=== PATIENT | male | born 1975 | race Caucasian/White ===

== ENCOUNTER 2022-11-01 09:57 | Observation (INO) ==
[~2022-11-01 09:57] MED LIST: Buffered Lidocaine 1% SYRIN 1 ml INTRADERM ONE; HYDROcodone/ACETAMIN 5/325 mg TAB PO PRN; Lactated Ringers 1000 ml BAG 1,000 ML IV SCH; Metoclopramide 5 MG/ML VIAL (10 mg) IV PRN; Naloxone 0.4 mg VIAL 0.4 mg/ml 1 ml VIAL IV PRN; Ondansetron 4 mg VIAL 2 MG/ML 2 ml VIAL IV PRN; fentaNYL 100 mcg/2 ml 50 MCG/ML VIAL IV PRN
[2022-11-01] MEDS ORDERED: Buffered Lidocaine 1% SYRIN 1 ml ONE (10:39)
[2022-11-01] MEDS ORDERED: ceFAZolin 2 GM in NS PREMIX 2 GM/100 ML BAG IVPB ONE (10:39)
[2022-11-01] MEDS ORDERED: Propofol 10 MG/ML 20 ML BTL ONE (13:33)
[2022-11-01] MEDS ORDERED: Rocuronium 50 mg VIAL 10 mg/ml 5 ml VIAL (50 mg) ONE ×2 (13:33→14:42)
[2022-11-01] MEDS ORDERED: Lidocaine 2% PF 5 ML VIAL ONE (13:33)
[2022-11-01] MEDS ORDERED: Ondansetron 4 mg VIAL 2 MG/ML 2 ml VIAL ONE (13:33)
[2022-11-01] MEDS ORDERED: Midazolam 2 mg/2 ml VIAL 1 mg/ml 2 ml VIAL (2 mg) ONE (13:33)
[2022-11-01] MEDS ORDERED: Dexamethasone IV 4 MG/ML VIAL 1 ml VIAL ONE (13:33)
[2022-11-01] MEDS ORDERED: fentaNYL 100 mcg/2 ml 50 MCG/ML VIAL ONE ×3 (13:33→17:04)
[2022-11-01] MEDS ORDERED: ROPIVACAINE 5 MG/ML 30 ML BTL (0.5%) ONE (13:33)
[2022-11-01] MEDS ORDERED: Lactulose 30 ml UDC PO PRN (14:31)
[2022-11-01] MEDS ORDERED: Ondansetron 4 mg VIAL 2 MG/ML 2 ml VIAL IV PRN (14:31)
[2022-11-01] MEDS ORDERED: Ondansetron ODT 4 mg TAB 4 MG TAB PO PRN (14:31)
[2022-11-01] MEDS ORDERED: Morphine 2 MG/ML SYRINGE IV PRN (14:31)
[2022-11-01] MEDS ORDERED: Magnesium Hydroxide LIQ 30 ML UDC PO PRN (14:31)
[2022-11-01] MEDS ORDERED: Morphine 10 MG/ML VIAL (1 ml) ONE ×2 (14:35→15:03)
[2022-11-01] MEDS ORDERED: Glycopyrrolate IV 0.2 MG/ML 1 ML VIAL ONE (14:57)
[2022-11-01] MEDS ORDERED: Lactated Ringers 1000 ml BAG 1,000 ML IV SCH (15:00)
[2022-11-01] MEDS ORDERED: HYDROcodone/ACETAMIN 5/325 mg TAB ONE (17:36)
[2022-11-01] MEDS: ceFAZolin 1 GM ADVAN 1 GM in NS 0.9% 50 ML 50 ML IVPB SCH (21:21)
[2022-11-01] MEDS: Magnesium Hydroxide LIQ 30 ML UDC PO SCH (22:41)
[2022-11-02] MEDS: ceFAZolin 1 GM ADVAN 1 GM in NS 0.9% 50 ML 50 ML IVPB SCH ×2 (06:02→13:25)
[2022-11-02 06:31] LABS: Hematocrit 29 % (42-52); Hemoglobin 10.1 g/dL (14.0-18.0); Mean Platelet Volume 7.5 fL (7.4-10.4); Platelet Count 195 10^3/uL (150-450)
[2022-11-02 06:49] LABS: Calcium 8.5 mg/dL (8.6-10.3); Potassium 4.3 mmol/L (3.5-5.0); eGFR CKD-EPI 106.7 (>60)
[2022-11-02] MEDS: Magnesium Hydroxide LIQ 30 ML UDC PO SCH ×2 (08:09→21:42)
[2022-11-02] MEDS ORDERED: Atomoxetine 60 MG CAP (NF) PO SCH (09:00)
[2022-11-02] MEDS ORDERED: Atomoxetine 40 mg CAP (NF) PO SCH (09:00)
[2022-11-02] MEDS ORDERED: Vitamin THERAPEUTIC TAB PO SCH (09:00)
[2022-11-02] MEDS ORDERED: Atomoxetine 18 mg CAP (NF) PO SCH (09:00)
[2022-11-02 20:22] VITALS: BP 115/65
== END 2022-11-02 23:57 ==
LOC: INTOOBSV 09:57 → AA 09:57 → SSU 18:27
PROVIDERS: ADMIT Orthopaedic Surgery Adult Reconstructive Orthopaedic Surgery; ATTEND Orthopaedic Surgery Adult Reconstructive Orthopaedic Surgery